=== PATIENT | female | born 1995 | race Caucasian/White ===

== ENCOUNTER 2024-11-18 17:55 | Inpatient (IN) | payer BC, SELFPAY ==
[2024-11-18] VITALS (8 sets, daily range): BP systolic 106–141; BP diastolic 59–86; PULSE 93–111; RESP 16; TEMP 36.7–36.9; O2SAT 96–97; BMI 49.5
[2024-11-18 19:19] LABS: Basophils Absolute Auto 0.02 K/uL (0.00-0.30); Basophils Percent Auto 0.2 % (0.0-3.0); Eosinophils Absolute Auto 0.06 K/uL (0.00-0.50); Eosinophils Percent Auto 0.6 % (0.0-7.0); Hemoglobin* 10.5 gm/dL (12.0-16.0); Immature Granulocytes Abs Auto 0.14 K/uL (0.00-0.30); Immature Granulocytes Pct Auto 1.3 %; Lymphocytes Percent Auto 17.8 % (20-44); Mean Corpuscular HGB Conc 32 gm/dL (32-36); Mean Corpuscular Hemoglobin 26 pg (26-34); Mean Corpuscular Volume 80 fL (80-100); Monocytes Percent Auto 5.2 % (0.0-11.0); Neutrophils Percent Auto 74.9 % (42.0-72.0); Platelet Count* 232 K/uL (140-440); RDW Coefficient of Variation % 14.6 % (11.5-15.5); Red Blood Count 4.11 m/uL (4.00-5.20); White Blood Count* 10.84 K/uL (4.50-11.00)
[2024-11-18 19:21] LABS: Slide Review Reflex No
[2024-11-18] MEDS: miSOPROStoL 25 MCG/0.25 TABLET PO ×2 (19:47→23:39)
[2024-11-19] VITALS (59 sets, daily range): BP systolic 72–139; BP diastolic 35–79; PULSE 84–125; RESP 16–20; TEMP 36.6–37.1; O2SAT 97–99
[2024-11-19] MEDS: ONDANSETRON 2 MG/ML inj 4 MG IV (03:43)
[2024-11-19] MEDS: CALCIUM CARBONATE 500 MG CHEW PO (03:43)
[2024-11-19] MEDS: miSOPROStoL 25 MCG/0.25 TABLET PO ×3 (03:43→11:42)
[2024-11-19] MEDS: hydrOXYzine pamoate 25 MG CAPSULE 100 MG PO (04:51)
[2024-11-19] MEDS: MORPHINE 10 MG/ML inj IM (04:52)
--- NOTE | 2024-11-19 09:46 | PM.OBHPLI ---
OB - H&P: HPI Labor/Induction History of Present Illness Time Seen by Provider: 07:45 Date Seen: 11/19/24 Chief Complaint: The patient is a 29 year old 4 para 2 at 39+0 weeks gestation by 10 wk US, who presents for IOL for maternal obesity. Chief complaint: IOL prepregnancy BMI 44 : 4 Para: 2 Narrative: Megan Stapleton is a 29 year old female at 39+0 weeks by 10 wk US who present for IOL for maternal obesity. problem list as below: -related problem list: 1) Maternal obesity with pregravid BMI 44 - Level 2 ultrasound with MPP 10/03/24 (32w) with some limited views d/t position/gestational age. EFW 45th. Normal ECHO. Previously had normal survey at 20 weeks. Declined NIPT. - 36-week growth ultrasound 3322g, 89% - Cleared by anesthesia to deliver at [facility] - Daily baby ASA ? 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 Now s/p 3 doses. Regular contractions, starting to feel more painful, but not breathing through. History of Present Dating criteria: based on 1st trimester US only care: good care Ultrasounds: normal 1st trimester US and normal mid trimester US Medical complications: none Labs Blood type: O (+) positive Rubella: immune RPR/VDLR: nonreactive GBS status: negative HBsAG: negative Review of Systems Status of ROS: Reports: 10 or more systems reviewed and unremarkable except as noted in History and below Meds Home Medications and Allergies Home Medications ?Medication ?Instructions ?Recorded ?Confirmed ?Type ferrous gluconate 324 mg (38 mg 324 mg PO DAILY 11/18/24 11/18/24 History iron) tablet vitamin with calcium 1 tab PO DAILY 11/18/24 11/18/24 History no.72-iron 27 mg-folic acid 1 mg tablet ( Vitamins Plus Low Iron) Allergies Allergy/AdvReac Type Severity Reaction Status Date / Time No Known Allergies Allergy Verified 11/18/24 18:54 OB - H&P: Exam Physical Exam: Vital signs: Temp Pulse Resp BP Pulse Ox 98.2 F 85 18 121/76 97 11/19/24 03:47 11/19/24 07:41 11/19/24 03:47 11/19/24 07:41 11/18/24 18:22 Narrative: General appearance: Well-appearing adult female. Alert, oriented and appropriate. Sitting up in hospital bed. HEENT: EOMI, no conjunctival injection or discharge. MMM. Neck: Supple. CV: RRR, no rubs, murmurs or extra heart sounds. Pulm: CTAB, no wheezes, rales or rhonchi. Abdomen: Gravid. MSK: Moving all extremities. Ext: Warm and well-perfused. No LE edema. Skin: No rashes appreciated over exposed skin. Neuro: Grossly normal strength and sensation. No focal deficits. Psych: Normal affect. Detailed Labor and Delivery Exam: Dilation (cm): 2 Effacement (%): 20 Cervix position: posterior Consistency: medium Contraction frequency (min): 2 Fetus (Single): Amniotic Membrane Status: intact Heart Rate Baseline: 135 Monitor Accelerations: Present Monitor Decelerations: None Etl Analyst Developer Variability: Moderate (6-25) OB - Results Labs Labs: Short CBC 11/18/24 Range/Units 19:09 WBC 10.84 (4.50-11.00) K/uL Hgb 10.5 L (12.0-16.0) gm/dL Hct 33.0 (33.0-51.0) % Plt Count 232 (140-440) K/uL OB - Problem Based A/P Additional Plan (1) Term : Status: Acute (2) Maternal obesity affecting , antepartum: Problem details: Prepreg BMI 44. Cleared by anesthesia. Status: Acute Plan - Continue oral cytotec induction - May have epidural upon request for pain control - status category I - Anticipate vaginal delivery
--- NOTE | 2024-11-19 12:22 | PM.OBPNL ---
Subjective Time Seen by Provider: 12:22 Date Seen: 11/19/24 Narrative: S/p 5 doses of oral cytotec. Regular contractions every 2 mins, mild discomfort but napping much of the morning. Objective Vital Signs: Last Vital Signs Temp 98.3 F 11/19/24 12:13 Pulse 88 11/19/24 11:43 Resp 20 11/19/24 12:13 BP 123/79 11/19/24 11:43 Pulse Ox 97 11/18/24 18:22 Pelvic Exam Dilation (cm): 3 Effacement (%): 40 Station: -2 Contractions Monitor mode: External Contraction Frequency: 2 Contraction pattern: Regular Assessment Assessment: induction ongoing Status: Category l Heart Rate Baseline: 140 Stitching Machine Feeder Or Offbearer Variability: Moderate (6-25) Monitor Accelerations: Present Monitor Decelerations: None Plan Plan: - AROM for clear fluid - GBS negative - Epidural upon request - status category I - Anticipate vaginal delivery
[2024-11-19] MEDS: LACTATED RINGERS 1000 ML 1,000 ML 999 ML IV ×2 (13:08→14:17)
[2024-11-19] MEDS: ROPIVACAINE 0.2% 100 ml 100 ML 10 MG EPIDURAL (14:43)
[2024-11-19] MEDS: LIDOCAINE 2% (PF) 5 ML VIAL EPIDURAL (14:43)
--- NOTE | 2024-11-19 14:51 | PM.ANBPRC ---
PFSH PFSH Social History What is your current living situation?: I presently have a place to live Problems where you live: no known problems In the past 12 months, utilities in danger of being shut off: no In past 12 months, lack of transportation kept you from medical appts, meetings, work, or getting things needed for daily living: no In the past 12 mos, have been you worried that your food would run out before you had money to buy more?: never true In the past 12 mos, the food you bought just didn't last and you didn't have money to buy more?: never true Smoking Status: Never smoker How often does anyone, including family, friends and others, physically hurt you: never How often does anyone, including family, friends and others, insult or talk down to you: never How often does anyone, including family, friends and others, threaten you with harm: never How often does anyone, including family, friends and others, scream or curse at you: never Meds Home Medications and Allergies Home Medications ?Medication ?Instructions ?Recorded ?Confirmed ?Type ferrous gluconate 324 mg (38 mg 324 mg PO DAILY 11/18/24 11/18/24 History iron) tablet vitamin with calcium 1 tab PO DAILY 11/18/24 11/18/24 History no.72-iron 27 mg-folic acid 1 mg tablet ( Vitamins Plus Low Iron) Allergies Allergy/AdvReac Type Severity Reaction Status Date / Time No Known Allergies Allergy Verified 11/18/24 18:54 Results Labs Labs: Laboratory Results - last 24 hr 11/18/24 19:09 WBC 10.84 RBC 4.11 Hgb 10.5 L Hct 33.0 MCV 80 MCH 26 MCHC 32 RDW Coeff of Rasheed 14.6 Plt Count 232 Neut % (Auto) 74.9 H Lymph % (Auto) 17.8 L [place] % (Auto) 5.2 Eos % (Auto) 0.6 Baso % (Auto) 0.2 Neut # (Auto) 8.10 H Lymph # (Auto) 1.90 [place] # (Auto) 0.60 Eos # (Auto) 0.06 Baso # (Auto) 0.02 Abs Immat Gran (auto) 0.14 Imm/Tot Granulo (auto) 1.3 Blood Type O Positive Antibody Screen NEGATIVE Vital Signs Vital Signs: Last Vital Signs Temp 98.2 F 06/23/25 14:49 Pulse 92 11/19/24 14:46 Resp 18 11/19/24 14:49 BP 113/62 11/19/24 14:46 Pulse Ox 97 11/19/24 14:36 Weight: 114.986 kg Height: 152.4 cm Anesthesia Procedures Epidural Insertion Patient Location: OB Start Time: 14:15 Stop Time: 15:15 Start Date: 11/19/24 Stop Date: 11/19/24 Reason for Block: procedure for pain Patient Position: sitting Performed By: Edgar Barraza Preanesthetic Checklist: IV checked, risks and benefits discussed, monitors and equipment checked, pre-op evaluation, timeout performed and anesthesia consent Prep: chlorhexidine gluconate Monitoring: blood pressure monitoring, continuous pulse oximetry and heart rate Approach: midline Vertebral Space: lumbar (1-5) Epidural Technique: MARKUS saline Needle Type: Tuohy needle Injection Technique: continuous catheter Needle gauge: 17 Needle Length (cm): 10 cm Needle Insertion Depth (cm): 8 Catheter Gauge: 19 Catheter Type: multi-orifice Catheter at skin depth (cm): 19 Test Dose Result: negative and lidocaine 1.5% with epinephrine 1 to 200,000
[2024-11-19] MEDS: PHENYLEPHRINE 100 MCG/ML SYRINGE IVP ×2 (16:21→16:27)
--- NOTE | 2024-11-19 16:24 | PM.OBPNL ---
Subjective Time Seen by Provider: 16:24 Date Seen: 11/19/24 Narrative: Called to the bedside to assess the patient for rectal pressure. Transitioned to active labor following AROM around noon. Requested epidural, now in place and comfortable. 6/100/0 following epidural. No reporting more rectal pressure. Objective Vital Signs: Last Vital Signs Temp 98.5 F 11/19/24 15:59 Pulse 96 11/19/24 16:11 Resp 18 11/19/24 15:59 BP 91/55 L 11/19/24 16:11 Pulse Ox 97 11/19/24 14:36 Pelvic Exam Dilation (cm): 6 Effacement (%): 100 Station: +1 Contractions Monitor mode: External Contraction Frequency: 1-2 mins Contraction pattern: Regular Assessment Assessment: active labor Amniotic Membrane Status: AROM Status: Category ll Heart Rate Baseline: [address] Variability: Moderate (6-25) Monitor Accelerations: Present Monitor Decelerations: Variable Plan Plan: - Expectant management - Maternal hypotension following epidural, phenylephrine given - Pain well-controlled with epidural - FHT category II. Variables with contractions. - Anticipate vaginal delivery
[2024-11-19] MEDS: ePHEDrine sulfate 5 MG/ML inj 10 MG IVP ×2 (16:30→18:13)
[2024-11-19] MEDS: LACTATED RINGERS 1000 ML 1,000 ML 1200 ML IV (16:36)
--- NOTE | 2024-11-19 18:55 | PM.OBPNL ---
Subjective Time Seen by Provider: 18:55 Date Seen: 11/19/24 Objective Vital Signs: Last Vital Signs Temp 98.3 F 11/19/24 18:01 Pulse 120 H 11/19/24 18:44 Resp 18 11/19/24 18:01 BP 104/56 L 11/19/24 18:44 Pulse Ox 97 11/19/24 14:36 Pelvic Exam Dilation (cm): 6 Effacement (%): 100 Station: +1 Contractions Monitor mode: External Contraction pattern: Regular Assessment Amniotic Membrane Status: AROM Status: Category ll Heart Rate Baseline: 150 Monitor Accelerations: Present Monitor Decelerations: Variable
[2024-11-19] MEDS: OXYTOCIN 30 unit/500 ML in NS 30 UNIT/500 ML BAG 300 UNIT IVPB (19:26)
--- NOTE | 2024-11-19 19:44 | W.PM.OBVAGDE ---
OB Procedure Vag Delivery Mother Details Mother Details: The patient is a 29 year-old, 4, Para 2, admitted on 11/18/24 at 38+6 Days gestation for IOL for pre-gravid BMI of 44. She received oral cytotec x 5 doses. AROM for clear fluid occurred at 1204 on DOD. She requested epidural for pain management, which was placed with good effect. FHT showed periods of late and variable decelerations that were initially associated with maternal hypotension, and improved with phenylephrine and ephedrine. Continued to have some deep variable decelerations that resolved with repositioning. During this period, patient continued to progress. At 1907, she was found to be a rim, and feeling intense urge to push. Cervix reduced with pushing. At 1920, delivered a vigorous male infant over intact perineum. Nuchal cord was delivered through. Infant was placed on maternal chest. Cord was clamped and cut after a 60 second delay. Intact placenta, 3V cord, delivered spontaneously at 1925. There were no perineal lacerations. QBL was 240. Mom and baby are resting comfortably. : 4 Para: 2 Weeks Gestation: 38.6 Admission Date: 11/18/24 Additional Details Amniotic Membrane Status: AROM Amniotic Membrane Rupture Date: 11/19/24 Amniotic Membrane Rupture Time: 12:04 Amniotic Membrane Fluid Description: Clear Analgesia/Anesthesia Type: Epidural Waterbirth: No Pitcoin: No Intrapartal Events: Labor Augmentation and Labor Induction Induction Method: per misoprostol protocol Delivery augmentation: rupture of membranes Labor Onset: 12:00 Complete: 19:07 Pushin:11 Heart: heart tones during second stage were category II. Delivery Details Delivery Date: 11/19/24 Delivery Time: 19:21 Route of delivery: Gender: Male Infant Viability: Alive; Heart Rate Present Position at Delivery: OA Delivery Details: Delivered via spontaneous vaginal delivery. Infant was placed on maternal abdomen.? Cord was clamped and cut after a 30-60 second delay. Nose and mouth were bulb suctioned.? Infant weight pending. 1 Minute Interval Total Score: 8 5 Minute Interval Total Score: 9 Additional Details Shoulder Dystocia: No Placenta Delivery Time: 19:26 Placental Delivery Description: Spontaneous Procedure Done: Global Blood Loss: 240 Laceration: None Episiotomy Description: None Blood Loss Measurement Type: QBL Bakri Used: No Sponge/Need Count Correct: Yes Cord Vessel Description: 3 Vessels and Nuchal Cord Event Summary Status: Mother and were stable after delivery. Disposition: floor
[2024-11-19] MEDS: ACETAMINOPHEN 500 MG TABLET 1000 MG PO (20:02)
[2024-11-19] MEDS: IBUPROFEN 600 MG TABLET PO (23:02)
[2024-11-20 05:13] VITALS: BP 110/76; PULSE 89; RESP 16; TEMP 36.4; O2SAT 97
[2024-11-20 06:32] LABS: Hemoglobin* 9.3 gm/dL (12.0-16.0)
--- NOTE | 2024-11-20 07:25 | PM.OBDSVD1 ---
DS: Providers Provider Time Seen by Provider: 07: Date Seen: 11/20/24 Date of admission: 11/18/24 17:55 Primary care physician: Yvette Sellers MD Admitting Clinician: Yvette Sellers MD Attending Physician on discharge: Krysten Almazan MD Date of Discharge: 11/20/24 DS: Diagnosis Discharge Diagnosis (1) (normal spontaneous vaginal delivery): Status: Acute Problem details: Delivered evening 11/19/2024, doing well (2) Maternal obesity affecting , antepartum: Status: Acute Problem details: Prepreg BMI 44. Cleared by anesthesia. (3) Term : Status: Acute Exam Const: Vital Signs, click to edit/add: Vital Signs - 24 hr 11/19/24 07:41 11/19/24 11:43 11/19/24 12:13 Temperature 98.3 F Pulse Rate 85 88 Pulse Rate [Left P ulse Oximeter] Respiratory Rate 20 Blood Pressure 121/76 123/79 Blood Pressure [Le ft Arm] [facility] 13:00 11/19/24 13:01 11/19/24 14:26 Temperature 97.9 F Pulse Rate 84 Pulse Rate [Left P ulse Oximeter] Respiratory Rate 18 Blood Pressure 123/75 Blood Pressure [Le ft Arm] Pulse Oximetry 99 Oxygen Delivery Me od 11/19/24 14:31 11/19/24 14:36 11/19/24 14:39 Temperature Pulse Rate 102 H 100 Pulse Rate [Left P ulse Oximeter] Respiratory Rate Blood Pressure 139/67 112/64 Blood Pressure [Le ft Arm] Pulse Oximetry 97 97 Oxygen Delivery Me od 11/19/24 14:40 11/19/24 14:42 11/19/24 14:44 Temperature Pulse Rate 100 95 93 Pulse Rate [Left P ulse Oximeter] Respiratory Rate Blood Pressure 114/72 113/61 112/59 L Blood Pressure [Le ft Arm] Pulse Oximetry Oxygen Delivery Me thod 11/19/24 14:46 11/19/24 14:49 11/19/24 14:53 Temperature 98.2 F Pulse Rate 92 97 Pulse Rate [Left P ulse Oximeter] Respiratory Rate 18 Blood Pressure 113/62 116/57 L Blood Pressure [Le ft Arm] Pulse Oximetry Oxygen Delivery Me thod 11/19/24 14:58 11/19/24 15:14 11/19/24 15:29 Temperature Pulse Rate 95 93 87 Pulse Rate [Left P ulse Oximeter] Respiratory Rate Blood Pressure 115/59 L 109/61 117/56 L Blood Pressure [Le ft Arm] Pulse [facility]ximetry [facility] 11/[facility] 15:59 11/19/24 16:01 11/19/24 16:04 Temperature 98.5 F Pulse Rate 105 H 108 H Pulse Rate [Left P ulse Oximeter] Respiratory Rate 18 Blood Pressure 72/35 L 93/53 L Blood Pressure [Le ft Arm] Pulse Oximetry [facility] 11/[facility] 16:11 11/19/24 16:26 11/19/24 16:29 Temperature Pulse Rate 96 90 91 Pulse Rate [Left P ulse Oximeter] Respiratory Rate Blood Pressure 91/55 L 91/43 L 81/39 L Blood Pressure [Le ft Arm] Pulse Oximetry [facility] 11/[facility] 16:33 11/19/24 16:37 11/19/24 16:38 Temperature Pulse Rate 92 106 H 102 H Pulse Rate [Left P ulse Oximeter] Respiratory Rate Blood Pressure 94/46 L 118/57 L 111/55 L Blood Pressure [Le ft Arm] Pulse Oximetry [facility] 11/[facility]/24 16:43 11/19/24 16:48 11/19/24 16:53 Temperature Pulse Rate 112 H 102 H 101 H Pulse Rate [Left P ulse Oximeter] Respiratory Rate Blood Pressure 111/55 L 108/58 L 106/57 L Blood Pressure [Le ft Arm] Pulse Oximetry [facility] 11/[facility] 16:59 11/19/24 17:04 11/19/24 17:06 Temperature 98.3 F Pulse Rate 108 H 105 H Pulse Rate [Left P ulse Oximeter] Respiratory Rate 18 Blood Pressure 113/61 110/58 L Blood Pressure [Le ft Arm] Pulse Oximetry [facility] 11/[facility] 17:09 11/19/24 17:14 11/19/24 17:19 Temperature Pulse Rate 102 H 102 H 101 H Pulse Rate [Left P ulse Oximeter] Respiratory Rate Blood Pressure 109/60 113/61 111/63 Blood Pressure [Le ft Arm] Pulse Oximetry [facility] 17:24 11/19/24 17:31 11/19/24 17:42 Temperature Pulse Rate 103 H 105 H 105 H Pulse Rate [Left P ulse Oximeter] Respiratory Rate Blood Pressure 114/63 114/65 116/62 Blood Pressure [Le ft Arm] Pulse Oximetry Oxygen Delivery Sc thod 11/19/24 17:52 11/19/24 18:01 11/19/24 18:01 Temperature 98.3 F Pulse Rate 100 107 H Pulse Rate [Left P ulse Oximeter] Respiratory Rate 18 Blood Pressure 119/65 118/60 Blood Pressure [Le ft Arm] Pulse Oximetry Oxygen Delivery Sc thod 11/19/24 18:12 11/19/24 18:16 11/19/24 18:20 Temperature Pulse Rate 105 H 104 H 111 H Pulse Rate [Left P ulse Oximeter] Respiratory Rate Blood Pressure 86/35 L 113/54 L 113/57 L Blood Pressure [Le ft Arm] Pulse Oximetry Oxygen Delivery Sc thod 11/19/24 18:44 11/19/24 19:01 11/19/24 19:28 Temperature 98.7 F Pulse Rate 120 H 121 H Pulse Rate [Left P ulse Oximeter] Respiratory Rate 18 Blood Pressure 104/56 L 106/74 Blood Pressure [Le ft Arm] Pulse [facility]ximetry [facility] 19:28 11/19/24 19:41 11/19/24 19:42 Temperature 98.2 F Pulse Rate 122 H Pulse Rate [Left P ulse Oximeter] Respiratory Rate 18 18 Blood Pressure 109/59 L Blood Pressure [Le ft Arm] Pulse Oximetry Oxygen Delivery Sc thod 11/19/24 19:57 11/19/24 19:57 11/19/24 20:12 Temperature 98.6 F Pulse Rate 121 H 125 H Pulse Rate [Left P ulse Oximeter] Respiratory Rate 18 Blood Pressure 112/63 111/66 Blood Pressure [Le ft Arm] Pulse Oximetry Oxygen Delivery Sc thod 11/19/24 20:12 11/19/24 20:27 11/19/24 20:27 Temperature 97.8 F Pulse Rate 116 H Pulse Rate [Left P ulse Oximeter] Respiratory Rate 16 16 Blood Pressure 114/69 Blood Pressure [Le ft Arm] Pulse Oximetry 98 Oxygen Delivery Sc thod 11/19/24 20:42 06/23/25 20:42 11/19/24 20:57 Temperature 98.1 F Pulse Rate 113 H 111 H Pulse Rate [Left P ulse Oximeter] Respiratory Rate 16 Blood Pressure 108/63 105/59 L Blood Pressure [Le ft Arm] Pulse Oximetry 97 Oxygen Delivery Me thod 11/19/24 20:57 11/19/24 21:12 11/19/24 21:12 Temperature 98.1 F 98.1 F Pulse Rate 115 H Pulse Rate [Left P ulse Oximeter] Respiratory Rate 16 16 Blood Pressure 107/59 L Blood Pressure [Le ft Arm] Pulse Oximetry 97 97 Oxygen Delivery Me thod 11/19/24 21:27 11/19/24 21:27 11/19/24 22:55 Temperature 98.6 F Pulse Rate 115 H Pulse Rate [Left P ulse Oximeter] 103 H Respiratory Rate 16 16 Blood Pressure 106/59 L Blood Pressure [Le ft Arm] 103/70 Pulse Oximetry 98 Oxygen Delivery Me thod Room Air 11/20/24 05:13 Temperature 97.6 F Pulse Rate Pulse Rate [Left P ulse Oximeter] 89 Respiratory Rate 16 Blood Pressure Blood Pressure [Le ft Arm] 110/76 Pulse Oximetry 97 Oxygen Delivery Me thod Room Air Documenting provider has reviewed patient's vital signs: yes Common normals: no apparent distress and oriented x3 HENMT: Common normals: normocephalic Head and scalp: normocephalic Neck & C-Spine: Common normals: full ROM Resp: Common normals: normal respiratory effort and clear to auscultation bilaterally Auscultation: clear to auscultation bilaterally : Uterus: 1/U and firm Uterus palpation: uterus nontender Extremity: Common normals: no calf tenderness Other: bilateral leg edema Neuro: Common normals: oriented x3 Skin: Common normals: no rashes or lesions noted General skin exam: no rashes or lesions noted OB - DS: Summary Hospital Course Hospital Course: The patient is a 29 year old G 4 P 3 at 39.0 weeks gestation that was admitted to the Center on 11/18/24 for induction of labor for BMI >40. She had an uncomplicated vaginal delivery. She delivered a viable male infant. She is breast feeding. the patient has done well. Patient feels breast feeding is going well. Bleeding has been appropriate. Pain is controlled. Peripartum Data delivery method: Vaginal Laceration description: None complications: none Gender: Male Discharge Plan: Home Status at Discharge Functional status at discharge: independent ambulation Overall status at discharge: patient is back to baseline Time Spent with Patient Time attestation: Total time spent providing and/or coordinating discharge services: Time spent: Less than 30 minutes Discharge Plan Discharge Disposition: Home, Self-Care Date of Admission: 11/18/24 17:55 Attending Provider on Discharge: Krysten Almazan Primary Care Provider: Yvette Sellers I Condition: Improved Anticipated Discharge Date/Time: 11/20/24 22:00 Discharge Medications: Continued ferrous gluconate 324 mg (38 mg iron) tablet 324 mg PO DAILY Vitamin Plus Low Iron 27 mg iron- 1 mg tablet 1 tab PO DAILY Discharge Orders: Discharge Order (Routine); Ordered 11/20/24 Ordered By: Angelika Bernal Patient Education: OB Over the Counter Medication Information, OB Vaginal/Breast Feeding Activity Level: No Restrictions Activity Detail: Pelvic rest x 6 weeks, nothing in the vagina. Discharge Diet: Regular Follow Up Appointments: Yvette Sellers MD [Primary Care Provider, Obstetrics] Forms: MyHealth Info Instructions Discharge Comments: Please follow up [address] Sellers at [facility]
[2024-11-20 08:00] VITALS: BP 96/64; PULSE 94; RESP 16; TEMP 36.8; O2SAT 96
--- NOTE | 2024-11-20 10:33 | PM.ANPOST ---
Post Anesthesia Note Post Anesthesia Note Patient seen: Inpatient Respiratory Status: adequate Cardiovascular Status: adequate Mental Status: baseline Pain: adequate Temp: baseline Anesthetic awareness: N/A Complications: none Follow care: none
[2024-11-20 12:00] VITALS: BP 106/69; PULSE 95; RESP 16; TEMP 36.9
[2024-11-20 16:00] VITALS: BP 99/69; PULSE 99; RESP 16; TEMP 36.6; O2SAT 96
[2024-11-20 18:52] LABS: Rapid Plasma Reagin (RPR) Non Reactive (Non Reactive)
== END 2024-11-20 21:40 | disposition home or self-care (01) | DRG 560 ==
PROVIDERS: Admitting Provider Family Medicine; PCP Family Medicine; Visit Provider Family Medicine
DX: O99.214 Obesity complicating childbirth (principal); E66.9 Obesity, unspecified; Z3A.38 38 weeks gestation of pregnancy; Z37.0 Single live birth; O99.02 Anemia complicating childbirth; D64.9 Anemia, unspecified
CPT/HCPCS: 01967; 36415; 59200; 85018; 85025; 86592; 86850; 86900; 86901; A9270; J2270; J2405; J2795; J7120